=== PATIENT | female | born 1955 | race Caucasian/White ===

== ENCOUNTER 2022-07-19 08:36 | Outpatient (CLI) | payer OTHER, MEDICARE, SELFPAY ==
[2022-07-19 14:12] LABS: Thyroid Stimulating Hormone* 0.635 uIU/mL (0.270-4.20)
[2022-07-19 15:04] LABS: Albumin* 4.4 g/dL (3.3-5.0); Chloride* 104 mmol/L (96-114); Sodium* 141 mmol/L (135-149)
[2022-07-19 15:05] LABS: Potassium* 4.5 mmol/L (3.6-5.1)
[2022-07-19 15:06] LABS: Carbon Dioxide* 30 mmol/L (20-32); Cholesterol* 186 mg/dL (90-199); Creatinine* 0.8 mg/dL (0.5-1.5); Estimated Glomerular Filt Rate 80 ml/min
[2022-07-19 15:07] LABS: Alanine Aminotransferase* 26 U/L (4-35); Alkaline Phosphatase* 54 U/L (40-150); Aspartate Amino Transferase* 28 U/L (12-35); Bilirubin Total* 0.4 mg/dL (0.1-1.5); Blood Urea Nitrogen* 14 mg/dL (7-30); Calcium* 9.4 mg/dL (8.4-10.6); Glucose* 96 mg/dL (60-115); Total Protein* 7.1 g/dL (6.0-8.3); Triglycerides* 76 mg/dL (40-149)
[2022-07-19 15:08] LABS: HDL Cholesterol* 103 mg/dL (>=50); LDL Cholesterol Calculated 68 mg/dL (<100)
== END 2022-07-19 08:37 | disposition home or self-care (01) ==
PROVIDERS: PCP Family Medicine; Visit Provider Family Medicine
DX: Z00.00 Encounter for general adult medical examination without abnormal findings (principal); E03.9 Hypothyroidism, unspecified; E78.5 Hyperlipidemia, unspecified; M81.0 Age-related osteoporosis without current pathological fracture
CPT/HCPCS: 80053; 80061; 84443

== ENCOUNTER 2022-09-09 12:46 | Outpatient (CLI) | payer MEDICARE, SELFPAY ==
--- NOTE | 2022-09-09 13:00 | CRLHL7_ITS ---
For Patients: As a result of the Cures Act, medical imaging exams and procedure reports are released immediately into your electronic medical record. You may view this report before your referring provider. If you have questions, please contact your health care provider. Examination: US abdominal aorta Indication: Abdominal aortic aneurysm screening. Technique: Rivero scale and color Doppler images of the aorta and common iliac arteries are obtained. Comparison: None Findings: Proximal aorta: 2.5 x 2.6 cm Mid aorta: 1.8 x 1.9 cm Distal aorta: 1.7 x 1.8 cm Right common iliac artery: 1.2 x 1.3 cm Left common iliac artery: 1.1 x 1.2 cm Impression: No evidence of abdominal aortic aneurysm. Dictated by Lul Ramirez MD @ 09/09/2022 1:29:56 PM (Electronically Signed)
--- NOTE | 2022-09-09 14:00 | CRLHL7_ITS ---
For Patients: As a result of the Century Cures Act, medical imaging exams and procedure reports are released immediately into your electronic medical record. You may view this report before your referring provider. If you have questions, please contact your health care provider. Indication: Follow-up of nodules Technique: Noncontrast CT chest Please note that all CT scans at this facility use dose modulation, iterative reconstruction, and/or weight-based dosing when appropriate to reduce radiation dose to as low as reasonably achievable. Comparison: CT 07/14/2021 Findings: Stable 7 millimeter nodule within the right lower lobe at the costophrenic angle posteriorly, . Stable 4 millimeter nodule within the right middle lobe, . Stable lingular nodule adjacent to the left heart border, . No new nodules. Mild dependent areas of scarring. No pleural effusion or pulmonary edema. No infiltrate or pneumothorax. No adenopathy. Visualized breast tissue appears normal. The upper abdomen is unremarkable. Mild vascular calcifications. Degenerative disc disease. No fracture. Impression: Stable pulmonary nodules measuring up to 7 millimeters. Consider additional follow-up in 1 year. Please note that all CT scans at this facility use dose modulation, iterative reconstruction, and/or weight-based dosing when appropriate to reduce radiation dose to as low as reasonably achievable. Dictated by Lul Ramirez MD @ 09/09/2022 2:37:56 PM (Electronically Signed)
== END 2022-09-09 12:47 | disposition home or self-care (01) ==
LOC: US 12:48
PROVIDERS: PCP Family Medicine; Visit Provider Family Medicine
DX: R91.8 Other nonspecific abnormal finding of lung field (principal); Z82.49 Family history of ischemic heart disease and other diseases of the circulatory system
CPT/HCPCS: 71250; 76706

== ENCOUNTER 2022-10-14 13:43 | Outpatient (CLI) | payer MEDICARE, SELFPAY ==
--- NOTE | 2022-10-14 14:00 | CRLHL7_ITS ---
For Patients: As a result of the Century Cures Act, medical imaging exams and procedure reports are released immediately into your electronic medical record. You may view this report before your referring provider. If you have questions, please contact your health care provider. BILATERAL SCREENING MAMMOGRAM WITH COMPUTER-AIDED DETECTION AND TOMOSYNTHESIS TECHNIQUE: CC and MLO views were obtained. These mammographic images have been obtained using full-field digital technique. These mammographic images were interpreted with the benefit of computer-aided detection. Breast Tomosynthesis was used in this interpretation. COMPARISON FILM: 10/18/19, 10/24/13. FINDINGS: The breasts are heterogeneously dense, which may obscure small masses IMPRESSION: There is no radiographic evidence for malignancy. ASSESSMENT: BI-RADS Category 1: Negative RECOMMENDATION: Routine screening mammogram in 1 year. A lay language report of this examination will be provided to the patient. Lul Ramirez M.D. Diagnostic Radiologist [email or web address] TACO/Dictated by: Lul Ramirez MD @ 10/15/2022 11:22:00 AM (Electronically Signed)
--- NOTE | 2022-10-14 14:30 | CRLHL7_ITS ---
For Patients: As a result of the Century Cures Act, medical imaging exams and procedure reports are released immediately into your electronic medical record. You may view this report before your referring provider. If you have questions, please contact your health care provider. DXA BONE MINERAL DENSITY STUDY Current height (in): 69.0. Weight (lb): 126.0. Menopause age: 57. Ethnicity: White. 1. Have you had a previous hip or vertebral fracture? No. 2. Have you had any fractures during your adult life which did not result from significant trauma (e.g., auto accident)? No. 3. Did either of your parents have a hip fracture? No. 4. Do you smoke? No. 5. Have you ever taken Glucocorticoids? No. 6. Do you have rheumatoid arthritis? No. 7. Do you have secondary osteoporosis? No. 8. Do you drink 3 or more alcoholic drinks per day? No. 9. Are you being treated for osteoporosis? No. 10. Have you ever taken any of the following medications: Actonel, Evista, Fosamax, Miacalcin, Reclast, Boniva, Forteo, HRT (i.e. estrogen/hormone therapy), Protelos, Prolia, Vitamin D, Calcium, other ??? please specify. ANSWER: Yes,. 11. Do you have any of the following medical conditions: Anorexia or bulimia, asthma or emphysema, end stage renal disease, hyperparathyroidism, any seizure disorders, cancer, inflammatory bowel diseases, hysterectomy, other ??? please specify. ANSWER: No. 12. What was your maximum height (inches)? 63. 13. Do you perform weight bearing exercise regularly? No. 14. Do you regularly consume dairy products? No. 15. Do you drink caffeinated beverages? Yes. 16. At what age did your period start? 11. 17. Are you premenopausal? No. 18. How many full term pregnancies have you had? 3. 19. Have you ever missed your period for more than 6 months in a row (not including or menopause)? No. TECHNIQUE: Bone mineral density study was performed using the [employer]. FINDINGS: The results of the study expressed as bone mineral density (BMD) are as follows: Lumbar spine L1 to L4: BMD: 0.710 g/cm2. T-score: -3.1. Z-score: -1.0. Neck Left: BMD: 0.623 g/cm2. T-score: -2.0. Z-score: -0.3. Right: BMD: 0.552 g/cm2. T-score: -2.7. Z-score: -0.9. Total Left: BMD: 0.758 g/cm2. T-score: -1.5. Z-score: -0.0. Right: BMD: 0.683 g/cm2. T-score: -2.1. Z-score: -0.6. IMPRESSION: Osteoporosis. *Comparison exams done prior to 02/2020 were performed on different unit, [facility]. COMPARISON: Compared with scan of 10/18/2019, the bone mineral density has increased by 11.1 percent at the spine increased by 5.4 percent at the hips. Compared with scan of 05/04/2018, the bone mineral density has increased by 0.3 percent at the spine and decreased by 2.0 percent at the hip. Lul Ramirez M.D. Diagnostic Radiologist [email or web address] [email or web address] / be/Dictated by: Lul Ramirez MD @ 10/14/2022 3:56:00 PM (Electronically Signed)
== END 2022-10-14 13:44 | disposition home or self-care (01) ==
LOC: MAMMO 13:44
PROVIDERS: PCP Family Medicine; Visit Provider Family Medicine
DX: Z12.31 Encounter for screening mammogram for malignant neoplasm of breast (principal); R92.2 Inconclusive mammogram; Z13.820 Encounter for screening for osteoporosis; M81.0 Age-related osteoporosis without current pathological fracture; E03.9 Hypothyroidism, unspecified; E78.5 Hyperlipidemia, unspecified
CPT/HCPCS: 77063; 77067; 77080

== ENCOUNTER 2023-08-11 11:47 | Outpatient (CLI) | payer MEDICARE, SELFPAY | END 2023-08-11 11:48 | disposition home or self-care (01) | PROVIDERS: PCP Family Medicine; Visit Provider Family Medicine | DX: Z00.00 Encounter for general adult medical examination without abnormal findings (principal); E78.5 Hyperlipidemia, unspecified; E03.9 Hypothyroidism, unspecified; M81.0 Age-related osteoporosis without current pathological fracture | CPT/HCPCS: 80048; 82306; 82652; 84443 ==

== ENCOUNTER 2023-08-25 12:51 | Outpatient (RCR) | payer MEDICARE, SELFPAY ==
--- NOTE | 2023-08-15 15:03 | PC.NURSE ---
Diagnosis: Osteoporosis
--- NOTE | 2023-08-16 09:28 | URNOTE ---
Zoledronic acid ([id number]) has been approved 08/12/2023-08/12/2024 Auth #[id number]
[2023-08-25 13:26] VITALS: BP 138/68; PULSE 82; RESP 16; TEMP 36.7; O2SAT 93
[2023-08-25 14:22] VITALS: BP 138/68; PULSE 75; RESP 16; TEMP 37.4; O2SAT 94
== END 2024-02-21 23:59 | disposition home or self-care (01) ==
LOC: CCIC 12:51
PROVIDERS: PCP Family Medicine; Referring Provider Family Medicine; Visit Provider Clinical Nurse Specialist
DX: M81.0 Age-related osteoporosis without current pathological fracture (principal)
CPT/HCPCS: 96365; J3489

== ENCOUNTER 2023-10-25 08:11 | Outpatient (CLI) | payer MEDICARE, SELFPAY ==
--- NOTE | 2023-10-25 09:19 | W.ANESCHARGE ---
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
--- NOTE | 2023-10-25 09:29 | W.ANESCHARGE ---
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
== END 2023-10-25 08:12 | disposition home or self-care (01) ==
LOC: OP CLINIC 08:12
PROVIDERS: PCP Family Medicine; Visit Provider Surgery
DX: Z12.11 Encounter for screening for malignant neoplasm of colon (principal); K63.5 Polyp of colon; K57.30 Diverticulosis of large intestine without perforation or abscess without bleeding; K64.8 Other hemorrhoids; Z83.710 Family history of adenomatous and serrated polyps; Z80.0 Family history of malignant neoplasm of digestive organs
CPT/HCPCS: 00811; 45385; 88305; 99100; J2704

== ENCOUNTER 2024-07-20 08:32 | Outpatient (CLI) | payer MEDICARE, SELFPAY | END 2024-07-20 08:33 | disposition home or self-care (01) | LOC: LKVREF 08:34 | PROVIDERS: PCP Family Medicine; Visit Provider Family Medicine | DX: E03.9 Hypothyroidism, unspecified (principal); E78.5 Hyperlipidemia, unspecified; M81.0 Age-related osteoporosis without current pathological fracture | CPT/HCPCS: 80053; 80061; 84443 ==

== ENCOUNTER 2024-08-15 13:45 | Outpatient (CLI) | payer MEDICARE, SELFPAY ==
--- NOTE | 2024-08-15 14:00 | CRLHL7_ITS ---
For Patients: As a result of the Century Cures Act, medical imaging exams and procedure reports are released immediately into your electronic medical record. You may view this report before your referring provider. If you have questions, please contact your health care provider. INDICATION: FOLLOW UP ABNORMALITY SEEN ON CXR FROM 07/15/23 TECHNIQUE: CT chest without contrast. COMPARISON: Exams dating back to 2020. FINDINGS: Lungs and Airways: Trace biapical subpleural fibrosis. No endoluminal lesion. A few stable scattered sub 6 millimeter indeterminate pulmonary nodules dating back to 2020 exam classified as statistically benign. No new suspicious pulmonary nodules. No mass or consolidation. Heart and Mediastinum: Atrophic versus resected thyroid. No axillary or supraclavicular lymphadenopathy. No mediastinal, hilar or retrocrural lymphadenopathy. Normal heart size. Normal caliber aorta. Atherosclerotic and coronary artery calcifications. Pleura: Normal. Abdomen: Stable dating back to 2020 left hepatic lobe cyst. Bones and soft tissues: The skeletal structures and soft tissues of the chest wall are unremarkable. IMPRESSION: A few stable scattered sub 6 millimeter indeterminate pulmonary nodules dating back to 2020 exam classified as statistically benign. No new suspicious pulmonary nodules. No mass or consolidation. Please note that all CT scans at this facility use dose modulation, iterative reconstruction, and/or weight-based dosing when appropriate to reduce radiation dose to as low as reasonably achievable. Dictated by Lul Meneses MD @ 08/16/2024 1:20:22 PM (Electronically Signed)
--- NOTE | 2024-08-15 15:00 | CRLHL7_ITS ---
For Patients: As a result of the Century Cures Act, medical imaging exams and procedure reports are released immediately into your electronic medical record. You may view this report before your referring provider. If you have questions, please contact your health care provider. DXA BONE MINERAL DENSITY STUDY Current height (in): 69.0. Weight (lb): 126.0 Menopause age: 57. Ethnicity: White. Reason for exam: Osteoporosis. 1. Have you had a previous hip or vertebral fracture? No. 2. Have you had any fractures during your adult life which did not result from significant trauma (e.g., auto accident)? No. 3. Did either of your parents have a hip fracture? No. 4. Do you smoke? Yes. 5. Have you ever taken Glucocorticoids? No. 6. Do you have rheumatoid arthritis? No. 7. Do you have secondary osteoporosis? No. 8. Do you drink 3 or more alcoholic drinks per day? No. 9. Are you being treated for osteoporosis? Yes. 10. Have you ever taken any of the following medications: Actonel, Evista, Fosamax, Miacalcin, Reclast, Boniva, Forteo, HRT (i.e. estrogen/hormone therapy), Protelos, Prolia, Vitamin D, Calcium, other ??? please specify. ANSWER: Yes, Fosamax, vitamin D, calcium. 11. Do you have any of the following medical conditions: Anorexia or bulimia, asthma or emphysema, end stage renal disease, hyperparathyroidism, any seizure disorders, cancer, inflammatory bowel diseases, hysterectomy, other ??? please specify. ANSWER: Yes, hyperparathyroidism. 12. What was your maximum height (inches)? 63. 13. Do you perform weight bearing exercise regularly? No. 14. Do you regularly consume dairy products? No. 15. Do you drink caffeinated beverages? Yes. 16. At what age did your period start? 11. 17. Are you premenopausal? No. 18. How many full-term pregnancies have you had? 3. 19. Have you ever missed your period for more than 6 months in a row (not including or menopause)? No. TECHNIQUE: Bone mineral density study was performed using the [employer]. FINDINGS: The results of the study expressed as bone mineral density (BMD) are as follows: Lumbar spine L1 to L4: BMD: 0.742 g/cm2. T-score: -2.8. Z-score: -0.6 Neck Left: BMD: 0.604 g/cm2. T-score: -2.2. Z-score: -0.3 Right: BMD: 0.567 g/cm2. T-score: -2.5. Z-score: -0.7 Total Left: BMD: 0.760 g/cm2. T-score: -1.5. Z-score: 0.1 Right: BMD: 0.756 g/cm2. T-score: -1.5. Z-score: 0.1 IMPRESSION: Osteoporosis. *Comparison exams done prior to 02/2020 were performed on different unit, [facility]. COMPARISON: Compared with scan of 10/14/22, the bone mineral density has increased by 4.5 percent at the spine and increased by 5.3 percent at the hip. Lul Ramirez M.D. Diagnostic Radiologist [email or web address] Transcribed: 10:09 am DW/Dictated by: Lul Ramirez MD @ 08/16/2024 9:41:00 AM (Electronically Signed)
== END 2024-08-15 13:46 | disposition home or self-care (01) ==
LOC: CT 13:46
PROVIDERS: PCP Family Medicine; Visit Provider Family Medicine
DX: R91.8 Other nonspecific abnormal finding of lung field (principal); R05.9 Cough, unspecified; M81.0 Age-related osteoporosis without current pathological fracture
CPT/HCPCS: 71250; 77080

== ENCOUNTER 2024-10-19 10:29 | Outpatient (CLI) | payer MEDICARE, SELFPAY ==
--- NOTE | 2024-10-19 10:45 | CRLHL7_ITS ---
For Patients: As a result of the Century Cures Act, medical imaging exams and procedure reports are released immediately into your electronic medical record. You may view this report before your referring provider. If you have questions, please contact your health care provider. BILATERAL SCREENING MAMMOGRAM WITH COMPUTER-AIDED DETECTION AND TOMOSYNTHESIS TECHNIQUE: CC and MLO views were obtained. These mammographic images have been obtained using full-field digital technique. These mammographic images were interpreted with the benefit of computer-aided detection. Breast Tomosynthesis was used in this interpretation. COMPARISON FILM: 10/14/22, 10/18/19, 10/24/13. FINDINGS: The breasts are heterogeneously dense, which may obscure small masses. IMPRESSION: There is no radiographic evidence for malignancy. ASSESSMENT: BI-RADS Category 2: Benign RECOMMENDATION: Routine screening mammogram in 1 year. A lay language report of this examination will be provided to the patient. Lul Ramirez M.D. Diagnostic Radiologist [email or web address] SP/Dictated by: Lul Ramirez MD @ 10/22/2024 10:48:00 AM (Electronically Signed)
== END 2024-10-19 10:30 | disposition home or self-care (01) ==
LOC: MAMMO 10:30
PROVIDERS: PCP Family Medicine; Visit Provider Family Medicine
DX: Z12.31 Encounter for screening mammogram for malignant neoplasm of breast (principal); R92.333 Mammographic heterogeneous density, bilateral breasts
CPT/HCPCS: 77063; 77067

== ENCOUNTER 2025-09-12 08:28 | Outpatient (CLI) | payer MEDICARE, SELFPAY | END 2025-09-12 08:29 | disposition home or self-care (01) | LOC: NFLDREF 09-16 13:48 | PROVIDERS: PCP Family Medicine; Referring Provider Family Medicine; Visit Provider Family Medicine | DX: Z00.00 Encounter for general adult medical examination without abnormal findings (principal); E03.9 Hypothyroidism, unspecified; E78.5 Hyperlipidemia, unspecified; R53.83 Other fatigue | CPT/HCPCS: 80053; 80061; 83735; 84100; 84443 ==